=== PATIENT | male | born 1995 | race Native Hawaiian/Other Pacific Islander ===

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

== ENCOUNTER 2018-02-04 16:04 | Outpatient (CLI) | payer OTHER | END 2018-02-04 20:22 | disposition home or self-care (01) | LOC: RAD 16:04 | DX: R10.9 Unspecified abdominal pain (principal); N39.0 Urinary tract infection, site not specified | CPT/HCPCS: 81000; 87088 ==

== ENCOUNTER 2018-10-19 19:35 | Emergency (ER) | payer OTHER ==
[~2018-10-19] VITALS: Ht 188 cm; Wt 113.4 kg
[2018-10-19 20:42] LABS: PLATELET COUNT 230 K/uL (142-355)
[2018-10-19 20:51] LABS: POTASSIUM 3.8 mmol/L (3.6-5.2)
[2018-10-19 21:04] VITALS: BP 141/83; TEMP 97.2
== END 2018-10-19 21:04 | disposition home or self-care (01) ==
LOC: ED 19:35
PROVIDERS: Student in an Organized Health Care Education/Training Program
DX: S50.372A Other superficial bite of left elbow, initial encounter (principal); Y04.1XXA Assault by human bite, initial encounter; Y35.891A Legal intervention involving other specified means, law enforcement official injured, initial encounter; Z77.21 Contact with and (suspected) exposure to potentially hazardous body fluids; Y92.149 Unspecified place in prison as the place of occurrence of the external cause
CPT/HCPCS: 36415; 80053; 85027; 86803; 87340; 87535; 99283

== ENCOUNTER → 2019-06-24 | Outpatient (CLI) | payer OTHER | LOC: LAB 10:30 | DX: Z03.818 Encounter for observation for suspected exposure to other biological agents ruled out (principal) | CPT/HCPCS: 87635; G2023; U0002 ==

== ENCOUNTER 2022-09-14 14:38 | Outpatient (CLI) | payer OTHER | END 2022-09-14 19:50 | disposition home or self-care (01) | LOC: LABW 14:38 | PROVIDERS: ATTEND Internal Medicine Gastroenterology | DX: K59.1 Functional diarrhea (principal) | CPT/HCPCS: 82272; 82656; 82705; 83630; 87015; 87045; 87324; 87328; 87329; 87338; 87449; 87899 ==